=== PATIENT | male | born 1950 | race Caucasian/White ===

== ENCOUNTER → 2022-02-17 11:02 | Outpatient (BNVA) | payer MEDICARE, SELFPAY | PROVIDERS: PCP Internal Medicine; Visit Provider Psychiatry & Neurology Neurology | DX: G47.33 Obstructive sleep apnea (adult) (pediatric) (principal); R51.9 Headache, unspecified; M54.2 Cervicalgia; G91.2 (Idiopathic) normal pressure hydrocephalus; R26.9 Unspecified abnormalities of gait and mobility; G25.81 Restless legs syndrome; G89.29 Other chronic pain | CPT/HCPCS: 99202 ==

== ENCOUNTER 2022-05-02 10:34 | Outpatient (REF) | payer MEDICARE, SELFPAY ==
--- NOTE | ~2022-05-02 | XR_ITS ---
EXAMINATION: XR cervical spine 2V CLINICAL INFORMATION: Pain COMPARISON: None TECHNIQUE: 4 views of the cervical spine were obtained. FINDINGS: The cervical spine is visualized to the level of C7-T1 on the lateral view. Loss of the usual cervical spine lordosis which may be due to positioning or muscle spasm. Vertebral body heights are maintained. Mild degenerative disc disease at multiple levels, manifested by mild loss of disc space height and facet arthropathy. Lateral masses of C1 are well aligned on C2. Visualized portion of the dens is intact. No prevertebral soft tissue swelling. Partially imaged ventriculoperitoneal shunt catheter tubing in the right neck. XR/XR cervical spine 2V IMPRESSION: 1. Mild spondylosis of the cervical spine, as above detailed. 2. Loss of usual cervical spine lordosis which may be due to positioning or muscle spasm.
== END 2022-05-02 10:35 | disposition home or self-care (01) ==
LOC: HO.XRAY 10:34
PROVIDERS: PCP Family Medicine; Visit Provider Psychiatry & Neurology Neurology
DX: M54.2 Cervicalgia (principal)
CPT/HCPCS: 72040

== ENCOUNTER → 2022-05-04 08:16 | Outpatient (BNVA) | payer MEDICARE, SELFPAY | PROVIDERS: PCP Family Medicine; Visit Provider Nurse Practitioner Family | DX: G91.2 (Idiopathic) normal pressure hydrocephalus (principal); R51.9 Headache, unspecified; R26.9 Unspecified abnormalities of gait and mobility; M54.2 Cervicalgia; G25.81 Restless legs syndrome; G47.33 Obstructive sleep apnea (adult) (pediatric); G89.29 Other chronic pain | CPT/HCPCS: 99212 ==

== ENCOUNTER → 2022-05-31 11:05 | Outpatient (REF) | payer MEDICARE, SELFPAY | LOC: HO.SL 11:05 | PROVIDERS: Visit Provider Nurse Practitioner Family | DX: G47.33 Obstructive sleep apnea (adult) (pediatric) (principal); G25.81 Restless legs syndrome; G89.29 Other chronic pain; G91.2 (Idiopathic) normal pressure hydrocephalus; R51.9 Headache, unspecified | CPT/HCPCS: 95806 ==

== ENCOUNTER 2022-06-13 13:00 | Outpatient (RCR) | payer MEDICARE, SELFPAY ==
--- NOTE | 2022-05-29 15:11 | MHC.PT.EP ---
[facility] [place] Office [place] Office [place] [facility] [address] [phone] F: [phone] F: [phone] F: [phone] F: [phone] Physical Therapy Plan of Care Date of Evaluation: Date of Surgery: 3-4 years ago Diagnosis: unspecified abnormalities of gait and mobility Assessment: Patient is a 71 year old R handed male who presents with s/s consistent with unspecified abnormalities of gait and mobility. He does not work and is currently very sedentary. Patient past medical history includes DM and hydrocephalus. Current impairments include pain, balance, posture, ROM, strength, activity tolerance and functional mobility. Functional limitations include decreased ability to walk, stand, transfer, get out of bed and perform most standing activities. Patient is motivated with good rehab potential. Skilled PT will address impairments and functional limitations in order to achieve goals. Frequency and Duration: The patient will be seen 2x/week for 5 weeks Short Term Goals: I with HEP - 2 weeks Able to sit <> stand with 1 HH assist - 3 weeks ABle to walk > 5 minutes without rest - 3 weeks Long-Term Goals: LE strength 4-/5 grossly - 6 weeks SLB > 5 seconds b/l - 7 weeks LEFS 24/80 - 8 weeks Treatment Plan: Modalities to reduce pain, spasms and effusion. Manual therapy to restore motion and function. Therapeutic exercise to improve strength and flexibility. Neuromuscular re-education for posture and balance. Therapeutic activities to return to functional activities of daily living. Electronically signed by: Jackson Carver, PT Please sign and return to therapist. Thank you for your referral.
--- NOTE | 2022-08-08 07:33 | MHC.PT.DC ---
[facility] [place] Office [place] Office [place] Office [address] [place] [address] [phone] F: [phone] F: [phone] F: [phone] F: [phone] Physical Therapy Discharge Report Diagnosis: unspecified abnormalities of gait and mobility Date of Surgery: 3-4 years ago Date of Evaluation: 05/29/22 Date of Discharge: 06/14/22 Treatments to Date: 4 Cancellations to Date: No Shows to Date: Discharge Status: Independent with HEP Patient Elected to Stop Discharge Summary: 06/13; Pt needes freq rest periods. Pt fatigued after hip exs. Pt challanged with balance exs. 06/09/22: progressed with activity level today with educated on importance of strength and balance ex. Pt exp an increase in c/s sxs with c/o tingling and requested to not do any more ex. Pt challenged with tandem with staggered stance. Patient is a 71 year old R handed male who presents with s/s consistent with unspecified abnormalities of gait and mobility. He does not work and is currently very sedentary. Patient past medical history includes DM and hydrocephalus. Current impairments include pain, balance, posture, ROM, strength, activity tolerance and functional mobility. Functional limitations include decreased ability to walk, stand, transfer, get out of bed and perform most standing activities. Patient is motivated with good rehab potential. Skilled PT will address impairments and functional limitations in order to achieve goals. Electronically signed by: Jackson Carver PT Please sign and return to therapist. Thank you for your referral.
== END 2022-08-08 07:34 | disposition home or self-care (01) ==
LOC: HO.PTCHIC 13:00
PROVIDERS: Visit Provider Psychiatry & Neurology Neurology
DX: R26.9 Unspecified abnormalities of gait and mobility (principal)
CPT/HCPCS: 97110; 97112; 97163

== ENCOUNTER → 2022-07-07 09:59 | Outpatient (BNVA) | payer MEDICARE, SELFPAY | PROVIDERS: PCP Family Medicine; Visit Provider Nurse Practitioner Family | DX: G91.2 (Idiopathic) normal pressure hydrocephalus (principal); R51.9 Headache, unspecified; G47.33 Obstructive sleep apnea (adult) (pediatric); G25.81 Restless legs syndrome; G89.29 Other chronic pain; M54.2 Cervicalgia; R26.9 Unspecified abnormalities of gait and mobility | CPT/HCPCS: 99212 ==

== ENCOUNTER → 2022-10-18 19:30 | Outpatient (REF) | payer MEDICARE, SELFPAY | LOC: HO.SL 19:30 | PROVIDERS: PCP Family Medicine; Visit Provider Nurse Practitioner Family | DX: G47.33 Obstructive sleep apnea (adult) (pediatric) (principal); G25.81 Restless legs syndrome | CPT/HCPCS: 95810 ==

== ENCOUNTER → 2022-10-18 21:01 | Outpatient (BNV) | payer MEDICARE, SELFPAY | PROVIDERS: PCP Family Medicine; Visit Provider Psychiatry & Neurology Neurology | DX: G47.33 Obstructive sleep apnea (adult) (pediatric) (principal) | CPT/HCPCS: 95810 ==

== ENCOUNTER 2022-11-09 14:27 | Outpatient (AMB) | payer MEDICARE, SELFPAY ==
[2022-11-09 14:35] VITALS: BP 110/70; PULSE 72; O2SAT 96; BMI 40.8
--- NOTE | 2022-11-09 14:35 | MHC.OFFVIS ---
Intake Vital Signs 11/09/22 14:35 Height 5 ft 5 in Weight 245 lb 4 oz BMI 40.8 BP 110/70 Blood Pressure Location Rt brachial Position Sitting Pulse 72 Pulse Source Pulse Oximeter Pulse Oximetry (%) 96 Oxygen Delivery Method Room Air Intake Visit Reasons: follow up-LVM Intake Note: Pt presents in office as a f/u. [employer] Required: No Allergies No Known Allergies Allergy (Verified 11/09/22 14:37) HPI HPI Comments History of Present Illness Details 72 y/o male patient presents for follow up of sleep study. The PSG sleep study result was significant for mild degree of sleep apnea with increased severity in REM sleep. The AHI was 12/hr and REM AHI was 42/hr and oxygen vidhya was 75%. Sleep titration study ordered and scheduled today. Pt states that he takes ropinirole 0.5 mg BID, at 4 pm and 10 pm. His restless legs symptoms controls better in the evening but his legs jumping too much at night. He is on gabapentin 1200 mg BID. Pt reports headache, using Tylenol sometimes. He is on magnesium 400 mg qHS. Has hx of NPH and s/p shunt. [facility] Medical History Obesity Arthritis Asthma NPH (normal pressure hydrocephalus) GERD (gastroesophageal reflux disease) Kidney disease Hyperlipidemia HTN (hypertension) Diabetic neuropathy Diabetes Gait disorder Surgical History History of brain shunt H/O knee surgery History of cataract surgery Family History Father Alzheimer disease Mother Diabetes Hypertension Brother Prostate cancer Brother Cancer Sister Heart disease Sister Lung disease Son Diabetes Depression Daughter Diabetes Depression Social History (Updated 11/09/22 @ 14:41 by Nataliya Malloy CMA) Alcohol intake: current Alcohol intake frequency: holidays/special occasions only Patient Tobacco Use Status: Former Tobacco user Review of Systems Const All systems reviewed & are unremarkable except as noted in HPI and below Physical Exam Vital Signs: Last Vital Signs Pulse 72 11/09/22 14:35 BP 110/70 11/09/22 14:35 Pulse Ox 96 11/09/22 14:35 Oxygen Delivery Method Room Air 11/09/22 14:35 BMI result Body Mass Index 40.8 Assessment & Plan Assessment & Plan (1) Obstructive sleep apnea: Comment: Mild degree of sleep apnea with increased severity in REM. AHI was 12/hr and REM AHI was 42/hr and oxygen vidhya was 75% Code(s): G47.33 - Obstructive sleep apnea (adult) (pediatric) (2) Restless legs syndrome (RLS): Code(s): G25.81 - Restless legs syndrome (3) Chronic headaches: Comment: frontal headaches likely related to neck tightness , untreated sleep apnea. Code(s): R51.9 - Headache, unspecified; G89.29 - Other chronic pain Plan Advised patient to take ropinirole 0.5 mg at 8 pm and 10 pm to help him sleep better. Encouraged patient to increase physical activity, 30 min walk daily. Advised patient to undergo in-lab sleep titration study and will f/u of the result for appropriate treatment option. Continue to take magnesium 400 mg qHS and start vitamin B2 400 mg daily for headache prevention. Will consider repeat brain MRI if his headache frequency and intensity increased. Medications: New riboflavin (vitamin B2) 400 mg PO DAILY 30 days 30 tabs 6RF Refilled ropinirole 0.5 mg PO BID 30 days 60 tabs 6RF Coding Level of Care Code Est Pt Level 4 (48816) Diagnoses Obstructive sleep apnea G47.33 Restless legs syndrome (RLS) G25.81 Chronic headaches R51.9; G89.29
== END 2022-11-09 15:01 | disposition home or self-care (01) ==
PROVIDERS: PCP Family Medicine; Visit Provider Nurse Practitioner Family
DX: G47.33 Obstructive sleep apnea (adult) (pediatric) (principal); G25.81 Restless legs syndrome; R51.9 Headache, unspecified; G89.29 Other chronic pain
CPT/HCPCS: 99214

== ENCOUNTER → 2022-11-09 14:27 | Outpatient (BNVA) | payer MEDICARE, SELFPAY | PROVIDERS: PCP Family Medicine; Visit Provider Nurse Practitioner Family | DX: G47.33 Obstructive sleep apnea (adult) (pediatric) (principal); G25.81 Restless legs syndrome; R51.9 Headache, unspecified; G89.29 Other chronic pain | CPT/HCPCS: 99212 ==

== ENCOUNTER → 2022-11-15 19:30 | Outpatient (REF) | payer MEDICARE, SELFPAY | LOC: HO.SL 19:30 | PROVIDERS: PCP Family Medicine; Visit Provider Nurse Practitioner Family | DX: G47.33 Obstructive sleep apnea (adult) (pediatric) (principal) | CPT/HCPCS: 95811 ==

== ENCOUNTER → 2022-11-16 00:54 | Outpatient (BNV) | payer MEDICARE, SELFPAY | PROVIDERS: PCP Family Medicine; Visit Provider Psychiatry & Neurology Neurology | DX: G47.33 Obstructive sleep apnea (adult) (pediatric) (principal) | CPT/HCPCS: 95811 ==

== ENCOUNTER 2023-03-15 14:40 | Outpatient (AMB) | payer MEDICARE, SELFPAY ==
--- NOTE | 2023-03-15 14:46 | MHC.OFFVIS ---
Intake Vital Signs 03/15/23 14:52 Height 5 ft 5 in Weight 253 lb 8 oz BMI 42.2 BP 124/80 Blood Pressure Location Rt brachial Position Sitting Pulse 72 Pulse Source Pulse Oximeter Pulse Oximetry (%) 92 Oxygen Delivery Method Room Air Intake Visit Reasons: 4m follow up-Conf Intake Note: Patient presents for four month F/U. Having trouble keeping mask on face and he gets a lot of anxiety. lots of air coming out at once and feeling like he is going to have a heart attack. Pt. wondering if theres something different he could try. Allergies No Known Allergies Allergy (Verified 03/15/23 14:51) HPI HPI Comments History of Present Illness Details 72 y/o male patient presents for follow up of sleep study. The PSG sleep study result was significant for mild degree of sleep apnea with increased severity in REM sleep. The AHI was 12/hr and REM AHI was 42/hr and oxygen vidhya was 75%. Pt underwent titration study. He trialed on CPAP [id number]. There were some residual events at lower pressure. The breathing and oxygenation stabilized on CPAP at [id number]. Pt tried CPAP but very uncomfortable and can't get used to it yet. And also his restless legs very bothersome and couldn't use CPAP well. Pt states that he takes ropinirole 0.5 mg BID, at 4 pm and 10 pm. His restless legs symptoms controls better in the evening but his legs jumping too much at night. He is on gabapentin 1200 mg BID at 4 pm and 10 pm, too. [facility] Medical History Obesity Arthritis Asthma NPH (normal pressure hydrocephalus) GERD (gastroesophageal reflux disease) Kidney disease Hyperlipidemia HTN (hypertension) Diabetic neuropathy Diabetes Gait disorder Surgical History History of brain shunt H/O knee surgery History of cataract surgery Family History Father Alzheimer disease Mother Diabetes Hypertension Brother Prostate cancer Brother Cancer Sister Heart disease Sister Lung disease Son Diabetes Depression Daughter Diabetes Depression Social History (Updated 11/09/22 @ 14:41 by Nataliya Malloy CMA) Alcohol intake: current Alcohol intake frequency: holidays/special occasions only Patient Tobacco Use Status: Former Tobacco user Review of Systems Const All systems reviewed & are unremarkable except as noted in HPI and below Physical Exam Const General: cooperative Nutritional Appearance: obese Orientation/consciousness: patient oriented x3 Limitations: physical limitations HEENT Head: Yes normocephalic Neuro Other: Neck - pain and tenderness General: patient oriented x3, tone normal and moves all extremities Cranial nerves: Yes Bilaterally intact EOM present, Yes Nystagmus not present, Yes Normal facial strength present and Yes Midline tongue present Cognition (Neuro): normal cognition Gait exam (Neuro): Antalgic gait present Motor exam (neuro): 5/5 motor strength present throughout and Normal motor muscle tone present throughout Deep tendon reflexes (DTR's): Right triceps reflex intensity grade: 1+, Left triceps reflex intensity grade: 1+, Rt Biceps (C5, C6): 1+, Left biceps reflex intensity grade: 1+, Right brachioradialis reflex intensity grade: 0, Left brachioradialis reflex intensity grade: 0, Right patellar reflex intensity grade: 0 and Left patellar reflex intensity grade: 0 Coordination: [id number] test normal Psych Mental Status: mental status grossly normal Assessment & Plan Assessment & Plan (1) Obstructive sleep apnea: Comment: Mild degree of sleep apnea with increased severity in REM. AHI was 12/hr and REM AHI was 42/hr and oxygen vidhya was 75% Code(s): G47.33 - Obstructive sleep apnea (adult) (pediatric) (2) Restless legs syndrome (RLS): Code(s): G25.81 - Restless legs syndrome Plan Advised patient to take ropinirole 0.5 mg at 4 pm and 1 mg at 10 pm to help him sleep better. Encouraged patient to increase physical activity, 30 min walk daily. Advised patient to try CPAP at [id number] when he rest or watches TV to get used to it. Stressed compliance, use CPAP nightly and more than 4 hrs. Wt reduction advised. Medications: Changed From ropinirole 0.5 mg PO BID 30 days 60 tabs 6RF To ropinirole 1 tab q 4 pm and 2 tabs at 10 pm orally; 90 days 60 tabs 6RF Coding Level of Care Code Est Pt Level 4 (71697) Diagnoses Obstructive sleep apnea G47.33 Restless legs syndrome (RLS) G25.81
[2023-03-15 14:52] VITALS: BP 124/80; PULSE 72; O2SAT 92; BMI 42.2
== END 2023-03-15 15:46 | disposition home or self-care (01) ==
PROVIDERS: PCP Family Medicine; Visit Provider Nurse Practitioner Family
DX: G47.33 Obstructive sleep apnea (adult) (pediatric) (principal); G25.81 Restless legs syndrome
CPT/HCPCS: 99214

== ENCOUNTER → 2023-03-15 14:40 | Outpatient (BNVA) | payer MEDICARE, SELFPAY | PROVIDERS: PCP Family Medicine; Visit Provider Nurse Practitioner Family | DX: G47.33 Obstructive sleep apnea (adult) (pediatric) (principal); G25.81 Restless legs syndrome | CPT/HCPCS: 99212 ==

== ENCOUNTER 2024-10-08 13:08 | Outpatient (REF) | payer OTHER, SELFPAY ==
--- NOTE | 2024-10-08 | EMG_ITS ---
Chief complaint: History of diabetic neuropathy. Having more pain on both hands. Noted thinning of right FDI. Reason for referral: Evaluate for Carpal Tunnel Syndrome versus ulnar neuropathy Referred by: Wai PATEL Procedure done: Bilateral upper extremity NCS/EMG Precautions and/or limitations: None The limb temperature was monitored continuously and remained between 32-36 degrees C during the performance of the NCS. Ulnar motor NCS was performed with moderate elbow flexion between 70-90 degrees, with across-elbow distance of 10 cm. Nerve Conduction Studies Anti Sensory Summary Table ?Stim Site NR Onset (ms) Norm Onset (ms) Peak (ms) Norm Peak (ms) O-P Amp (?V) Norm O-P Amp Site1 Site2 Delta-0 (ms) Dist (cm) Keenan (m/s) Norm Keenan (m/s) Left Median Anti Sensory (2nd Digit) Wrist NR <3.6 >10 Wrist 2nd Digit 14.0 Right Median Anti Sensory (2nd Digit) Wrist ? 5.3 5.9 <3.6 4.2 >10 Wrist 2nd Digit 5.3 14.0 26 Left Radial Anti Sensory (Thumb) Forearm ? 1.7 2.2 <3.1 14.3 Forearm Thumb 1.7 0.0 Right Radial Anti Sensory (Thumb) Forearm NR <3.1 Forearm Thumb 0.0 Left Ulnar Anti Sensory (5th Digit) Wrist NR <3.7 >15.0 Wrist 5th Digit 14.0 Right Ulnar Anti Sensory (5th Digit) Wrist ? 4.2 5.3 <3.7 14.8 >15.0 Wrist 5th Digit 4.2 14.0 33 Motor Summary Table ?Stim Site NR Onset (ms) Norm Onset (ms) O-P Amp (mV) Norm O-P Amp iAmp (mV) Amp (1st) (%) Site1 Site2 Delta-0 (ms) Dist (cm) Keenan (m/s) Norm Keenan (m/s) Left Median Motor (Abd Poll Brev) Wrist ? 5.9 <3.9 4.9 >4.5 6.2 100.0 Elbow Wrist 5.1 23.5 46 >45 Elbow ? 11.0 4.2 5.2 85.7 Right Median Motor (Abd Poll Brev) Wrist ? 5.2 <3.9 6.4 >4.5 8.2 100.0 Elbow Wrist 4.4 20.0 45 >45 Elbow ? 9.6 6.5 8.6 101.6 Left Ulnar Motor (Abd Dig Minimi) Wrist ? 3.2 <3.0 6.3 >5 7.8 100.0 B Elbow Wrist 4.1 20.0 49 >45 B Elbow ? 7.3 5.4 7.0 85.7 A Elbow B Elbow 1.8 10.0 56 >45 A Elbow ? 9.1 5.3 6.9 84.1 Right Ulnar Motor (Abd Dig Minimi) Wrist ? 3.2 <3.0 6.0 >5 7.8 100.0 B Elbow Wrist 4.0 20.0 50 >45 B Elbow ? 7.2 5.4 6.9 90.0 A Elbow B Elbow 1.7 10.0 59 >45 A Elbow ? 8.9 3.4 4.3 56.7 Left Ulnar (FDI) Motor (FDI) Wrist ? 4.6 <3.0 3.9 >5 5.5 100.0 B Elbow Wrist 4.1 20.5 50 >45 B Elbow ? 8.7 4.4 5.7 112.8 A Elbow B Elbow 1.6 10.0 62 >45 A Elbow ? 10.3 3.7 5.2 94.9 Right Ulnar (FDI) Motor (FDI) Wrist ? 4.5 <3.0 9.1 >5 10.7 100.0 B Elbow Wrist 4.3 20.0 47 >45 B Elbow ? 8.8 4.5 5.8 49.5 A Elbow B Elbow 2.3 10.0 43 >45 A Elbow ? 11.1 0.3 0.5 3.3 EMG ?Side Muscle Nerve Root Ins Act Fibs Psw Amp Dur Poly Recrt Int Pat Comment Right 1stDorInt Ulnar C8-T1 Incr 1+ 1+ Nml Nml 0 Nml Complete Right FlexCarpiUln Ulnar C8,T1 Nml Nml Nml Nml Nml 0 Nml Complete Right Biceps Musculocut C5-6 Nml Nml Nml Nml Nml 0 Nml Complete Right Triceps Radial C6-7-8 Nml Nml Nml Nml Nml 0 Nml Complete Right Deltoid Axillary C5-6 Nml Nml Nml Nml Nml 0 Nml Complete Left 1stDorInt Ulnar C8-T1 Nml Nml Nml Nml Nml 0 Nml Complete Left FlexCarpiUln Ulnar C8,T1 Nml Nml Nml Nml Nml 0 Nml Complete Left Biceps Musculocut C5-6 Nml Nml Nml Nml Nml 0 Nml Complete Left Triceps Radial C6-7-8 Nml Nml Nml Nml Nml 0 Nml Complete Left Deltoid Axillary C5-6 Nml Nml Nml Nml Nml 0 Nml Complete Paraspinal EMG ?Side Muscle Nerve Root Ins Act Fibs Psw Comment Right Cervical Upper Rami Nml Nml Nml Right Cervical Mid Rami Nml Nml Nml Right Cervical Lower Rami Nml Nml Nml Left Cervical Upper Rami Nml Nml Nml Left Cervical Mid Rami Nml Nml Nml Left Cervical Lower Rami Nml Nml Nml FINDINGS: Bilateral median motor nerves showed prolonged distal latency, normal amplitude and normal conduction velocity. Right ulnar motor nerve, recording ADM muscle, showed prolonged distal latency, smaller amplitudes proximally but normal conduction velocity. When recording at FDI muscle, showed prolonged distal latencies, drop in amplitude above elbow, and slow conduction velocity across the elbow. Left ulnar motor nerve, recording ADM, showed prolonged distal latency, normal amplitude and normal conduction velocity. When recording at FDI, showed prolonged distal latencies and small amplitude but still normal conduction velocity. Right median and ulnar sensory nerves showed peak latency.prolonge and small amplitude. Right radial sensory nerves showed absent response. Left median and ulnar sensory nerves showed absent response. All other nerves tested were within normal. Concentric needle EMG was performed in selected muscles of the bilateral upper extremities and cervical paraspinals. Study revealed signs of electric abnormalities as shown in the table above. Right FDI showed increased insertional activity, PSWs and fibrillations. IMPRESSION: 1. This is an abnormal study. 2. There is electrodiagnostic evidence for bilateral moderate-severe median neuropathy at the wrist, consistent with Carpal Tunnel Syndrome. 3. There is electrodiagnostic evidence for bilateral ulnar neuropathy at the elbow, more localizable on the right side. 4. There is no electrodiagnostic evidence for brachial plexopathy or cervical radiculopathy. CLINICAL COMMENT: Evidence of Carpal Tunnel Syndrome and ulnar neuropathy in a patient with known history of peripheral neuropathy. Thank you for your kind referral. Lori Garcia MD, GIANNA Board Certified, [place] [employer] and [employer] (ABPMR) Board Certified, [place] Board [employer] Electrodiagnostic [employer] (ABEM) CODIN [phone] [id number]
--- OUTSIDE RECORDS SUMMARY | 2024-10-08 13:42 | XMS_ITS | Clinical Summary ---
Author Organization [facility]. Address [address] [place] [address] [address] [place] [address] Phone Care Team Providers Care Oracle Analyst Name Role Phone Jorje Carolina Primary Care Provider [phone] Allergies Active Allergy Reactions Criticality Noted Date Comments Sitagliptin Other (see comments),Rash Low 3 Medications acetaminophen (TYLENOL 8 HOUR) 650 MG 8 hr tablet Take 650 mg by mouth 3 Active albuterol HFA (PROVENTIL HFA;VENTOLIN HFA) 108 (90 Base) MCG/ACT inhaler Inhale 2 Puffs into the lungs every 4 hours as needed for Cough, Wheezing or Shortness of Breath. 3 Active albuterol (2.5 MG/3ML) 0.083% nebulizer solution Take 1 Vial by nebulization every 4 hours as needed for Wheezing, Shortness of Breath or Cough. 3 Active amLODIPine (NORVASC) 5 MG tablet Take 5 mg by mouth in the morning. 1 Active atorvastatin (LIPITOR) 20 MG tablet Take 20 mg by mouth in the morning. 1 Active cetirizine (ZyrTEC) 10 MG tablet Take 10 mg by mouth 1 (one) time each day Active clobetasol (TEMOVATE) 0.05 % ointment APPLY EXTERNALLY A SMALL AMOUNT TO THE AFFECTED AREA EVERY 12 HOURS FOR NO MORE THAN 14 DAYS AT A TIME Active cyanocobalamin 500 MCG tablet Take 500 mcg by mouth in the morning. 5 Active cyclobenzaprine (FLEXERIL) 10 MG tablet Take 10 mg by mouth 2 times daily as needed 4 Active famotidine (PEPCID) 20 MG tablet TAKE 1 TABLET BY MOUTH AT BEDTIME NEEDED FOR HEARTBURN Active ferrous sulfate 325 (65 Fe) MG tablet Take 325 mg by mouth every other day 5 Active gabapentin (NEURONTIN) 800 MG tablet Take 800 mg by mouth in the morning and 800 mg at noon and 800 mg in the evening. 5 Active hydrOXYzine (ATARAX) 25 MG tablet Take 1 tablet by mouth 2 times daily as needed 1 Active Insulin Aspart 100 UNIT/ML solution Inject as directed. 14 units Active Lantus SoloStar 100 UNIT/ML injection ADMINISTER 60 UNITS UNDER THE SKIN DAILY Active lisinopril 40 MG tablet Take 40 mg by mouth in the morning. 1 Active meclizine (ANTIVERT) 12.5 MG tablet Take 12.5 mg by mouth 0 Active melatonin 3 MG tablet Take 3 mg by mouth 3 Active metoprolol succinate XL (TOPROL XL) 25 MG 24 hr tablet Take 25 mg by mouth in the morning. 5 Active omeprazole (PriLOSEC) [address] capsule take 1 capsule by mouth every morning before breakfast Active Riboflavin 400 MG tablet Take 1 tablet by mouth 1 (one) time each day Active rOPINIRole (REQUIP) 0.5 MG tablet Take 0.5 mg by mouth in the morning and 0.5 mg at noon and 0.5 mg in the evening. 1 Active sildenafil (VIAGRA) 100 MG tablet TAKE 1 TABLET BY MOUTH DIRECTED 30-60 MINUTES PRIOR TO SEX ON EMPTY STOMACH Active tacrolimus (PROTOPIC) 0.1 % ointment APPLY TO THE AFFECTED AREA ON FACE AND NECK TWICE DAILY NEEDED Active terbinafine (LamISIL) 1 % cream Active Mounjaro 7.5 MG/0.5ML solution auto-injector ADMINISTER 7.5 MG UNDER THE SKIN EVERY 7 DAYS 5 Active tamsulosin (FLOMAX) 0.4 MG 24 hr capsule Take 0.4 mg by mouth at bed time Active trospium (SANCTURA) 20 MG tablet Take 1 tablet by mouth in the morning and 1 tablet in the evening. 3 Active Fluticasone-Oziel meterol (Wixela Inhub) 500-50 MCG/ACT aerosol powder Inhale Active Finerenone (Kerendia) 10 MG tablet Take 10 mg by mouth 1 (one) time each day 90 tablet 1 5 07/12/19 26 Active Active Problems Problem Noted Date Diagnosed Date Stage 3a chronic kidney disease 07/11/2024 Type 2 diabetes mellitus wit h diabetic chronic kidney disease 05/30/2024 Renal osteodystrophy 05/30/2024 Stage 3b chronic kidney disease 05/08/2024 Iron deficiency anemia 09/03/2023 Urinary incontinence 08/09/2022 Type 2 diabetes mellitus 05/13/2020 Cobalamin deficiency 08/13/2019 Proteinuria 02/08/2017 Hypertensive disorder 12/01/2016 Overview (05/29/2024): Last Assessment & Plan: Patient's blood pressure is well-controlled today with reading 118/72. We will continue his current antihypertensive medication regimen as prescribed. Vitamin D deficiency 12/01/2016 Encounters Date Type Department Care Team Description 07/11/2024 9:00 AM EDT Office Visit [facility] [address] [address] Shade Grey MD Stage 3a chronic kidney disease (HCC) (Primary Dx); Type 2 diabetes mellitus with diabetic chronic kidney disease (HCC); Hypertensive disorder from Last 3 Months Immunizations Immunization Administration Dates Next Due Influenza, MDCK, PF, Quadrivalent 03/05/2018 Influenza, MDCK, Quadrivalen t, with preservative 11/24/2016 Influenza, Trivalent, Adjuvanted 024,02/16/2023,02/04/2021,12/08,12/02/2018 Moderna SARS-COV-2 08/24/2021, 1,06/18/2020,05/21 Pneumococcal Conjugate 13-Valent 12/02/2018 Pneumococcal Polysaccharide 06/08/2022 Td 06/08/2022 Family History Medical History Relation Comments Diabetes Mother Relation Status Comments Father Mother Social History Tobacco Use Types Packs/Day Years Used Date Smoking Tobacco: Never Tobacco Cessation:Counseling Given: Not Answered Alcohol Use Standard Drinks/Week Comments Never 0 (1 standard drink = 0.6 oz pur e alcohol) Sex and Gender Information Value Date Recorded Sex Assigned at Not on file Legal Sex Male 11:36 AM EDT Gender Identity Not on file Sexual Orientation Not on file Last Filed Vital Signs Vital Sign Reading Time Taken Comments Blood Pressure 138/65 07/11/2024 9:40 AM EDT Pulse 69 07/11/2024 9:40 AM EDT Temperature - - Respiratory Rate - - Oxygen Saturation 95% 07/11/2024 9:40 AM EDT Inhaled Oxygen Concentration - - Weight 118 kg (260 lb) 07/11/2024 9:40 AM EDT Height - - Body Mass Index - - Plan of Treatment Upcoming Encounters Date Type Department Care Team (Late st Contact Info) Description 01/07/2025 10:30 AM EST Office Visit [facility] [address] [address] Miryam Harrison ARNP [address] [phone] Health Maintenance Due Date Last Done Comments Colorectal Cancer Screening: Annual FOBT 08/14/2000 Colorectal Cancer Screening: Colonoscopy 08/14/2000 Colorectal Cancer Screening: Sigmoidoscopy 08/14/2000 Hepatitis B Vaccine (1 of 3 - Risk 3-dose series) 2011 Diabetes: Ophthalmology Exam 05/20/2024 Diabetes: Pedal Pulse Checked 05/20/2024 Diabetes: Sensory Foot Exam 05/20/2024 Diabetes: Visual Foot Exam 05/20/2024 Diabetes: Hemoglobin A1C 09/04/2024 06/05/2024, 02/26 Influenza Vaccine (#1) 2024 4, 02/16/2023, 02/04/2021, Additional history exists Pneumococcal Vaccine: 50+ Years Completed 3, 12/02/[address] [place] [id number] [facility] ([id number]) JORGE ORTEGA [id number] Care Teams Oracle Analyst Relationship Specialty Start Date End Date Jorje Carolina [address] [place] [address] [id number] PCP - General 05/20/24
--- OUTSIDE RECORDS SUMMARY | 2024-10-08 13:42 | XMS_ITS | Clinical Summary ---
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 Name Role Phone Jorje Carolina MD Primary Care Pr ovider Allergies Active Allergy Reactions Criticality Noted Date Comments Sitagliptin Rash 12/29/2022 Medications blood sugar diagnostic (FreeStyle Lite Strips) test strip USE DIRECTED 2 TO 3 TIMES DAILY TO CHECK BLOOD SUGAR 2022 Active trospium (SANCTURA) 20 mg tablet TAKE 1 TABLET BY MOUTH TWICE DAILY 2022 Active tacrolimus (PROTOPIC) 0.1 % ointment 2022 Active sildenafiL (VIAGRA) 100 mg tablet TAKE 1 TABLET BY MOUTH DIRECTED 30-60 MINUTES PRIOR TO SEX ON EMPTY STOMACH 2022 Active tamsulosin (FLOMAX) 0.4 mg 24 hr capsule Take 0.4 mg by mouth daily. 2020 Active dupilumab (Dupixent Syringe) 300 mg/2 mL syringe Inject into the skin. Once weekly Active dextrose 40 % gel Take 15 g by mouth if needed for low blood sugar. 2022 Active acetaminophen (TYLENOL 8 HOUR) 650 mg 8 hr tablet Take 1 tablet (650 mg total) by mouth every 8 (eight) hours if needed for mild pain, moderate pain or headaches. 2022 Active ketorolac (ACULAR) 0.5 % ophthalmic solution 1 drop. Active meclizine (ANTIVERT) 12.5 mg tablet Take 1 tablet (12.5 mg total) by mouth. 2019 Active fluticasone propion-salmeteroL (Wixela Inhub) 500-50 mcg/dose diskus inhaler INHALE 1 PUFF INTO THE LUNGS TWICE DAILY 2022 Active melatonin 3 mg tablet Take 1 tablet (3 mg total) by mouth at bedtime. 2022 Active insulin aspart (NovoLOG Flexpen U-100 Insulin) 100 unit/mL (3 mL) injection penIndications:Type 2 diabetes mellitus with diabetic neuropathy, with long-term current use of insulin (CMS/HCC V24, CMS/HCC V28) INJECT UNDER THE SKIN THREE TIMES DAILY WITH MEALS PER SLIDING SCALE;<100; 10U, 101-150; 12U, 151-200; 14U, 201-250; 16U, 251-300;18U, 301-350; 60 mL 2 2023 Active insulin glargine (Lantus Solostar U-100 Insulin) 100 unit/mL (3 mL) injection penIndications:Type 2 diabetes mellitus with diabetic neuropathy, with long-term current use of insulin (CMS/HCC V24, CMS/HCC V28) Inject 60 Units under the skin 1 (one) time each day. ADMINISTER 60 UNITS UNDER THE SKIN DAILY 60 mL 2 2023 Active pen needle, diabetic (BD Ivette 2nd Gen Pen Needle) 32 gauge x 5/32 needle 1 each by extracorporeal route 4 (four) times a day. 400 each 1 2024 Active alcohol swabs (Easy Touch Alcohol Prep Pads) pads, medicated USE TO TEST BLOOD SUGAR FOUR TIMES DAILY DIRECTEDUSE TO TEST BLOOD SUGAR FOUR TIMES DAILY DIRECTED 300 each 3 2024 Active lisinopril (PRINIVIL,ZESTRIL) 40 mg tabletIndications:Prim silvia hypertension Take 1 tablet (40 mg total) by mouth 1 (one) time each day. 90 tablet 1 2024 Active cyanocobalamin (VITAMIN B-12) 500 mcg tabletIndications:B12 deficiency Take 1 tablet (500 mcg total) by mouth 1 (one) time each day. 90 tablet 1 2024 Active clobetasoL (TEMOVATE) 0.05 % ointmentIndications:Ec zema, unspecified type Apply small amounts to affected area every 12 hours. Do not use for more than 14 days at a time 60 g 2 2024 Active amLODIPine (NORVASC) 5 mg tabletIndications:Prim silvia hypertension Take 1 tablet (5 mg total) by mouth 1 (one) time each day. 90 tablet 1 2024 Active cholecalciferol (VITAMIN D-3) 50 mcg (2,000 unit) tabletIndications:Sagrario min D deficiency Take 1 tablet (2,000 Units total) by mouth 1 (one) time each day. 90 tablet 3 05/31 Active omeprazole (PriLOSEC) [address] capsule Take 1 capsule (20 mg total) by mouth 1 (one) time each day with breakfast. Do not crush or chew. 90 each 1 12/20 Active blood-glucose sensor (PhotoShelterStyle Kanika 3 Plus Sensor) deviceIndications:Type 2 diabetes mellitus with diabetic neuropathy, with long-term current use of insulin ([facility] V24, [facility] V28) Box = Kit = EA, change sensor every 2 weeks 6 kit 1 2024 Active rOPINIRole (REQUIP) 0.5 mg tabletIndications:rest less leg syndrome Take 2 tablets (1 mg total) by mouth 3 (three) times a day. 540 tablet 3 2024 Active tiZANidine (ZANAFLEX) 2 mg tabletIndications:Metal Fitter hakeem left-sided low back pain with left-sided sciatica,Cervical spondylosis Take 1 tablet (2 mg total) by mouth every 8 (eight) hours if needed for muscle spasms. 270 tablet 3 2024 Active propranolol LA (Inderal LA) 60 mg 24 hr capsule Take 1 capsule (60 mg total) by mouth 1 (one) time each day. Do not crush, chew, or split. 90 each 3 07/17 Active ferrous sulfate 325 mg (65 mg elemental iron) tablet Take 1 tablet (325 mg total) by mouth every other day. 90 tablet 1 2024 Active hydrOXYzine HCL (ATARAX) 25 mg tabletIndications:Kadeem rgic rhinitis, unspecified seasonality, unspecified trigger Take 1 tablet (25 mg total) by mouth at bedtime as needed for anxiety. 90 tablet 1 2024 Active cetirizine (ZyrTEC) 10 mg tabletIndications:Kadeem rgic rhinitis, unspecified seasonality, unspecified trigger Take 1 tablet (10 mg total) by mouth 1 (one) time each day. 90 tablet 1 2024 Active tirzepatide (Mounjaro) 10 mg/0.5 mL injectionIndications:T ype 2 diabetes mellitus with diabetic neuropathy, with long-term current use of insulin ([facility] V24, [facility] V28) Inject 0.5 mL (10 mg total) under the skin every 7 (seven) days. 2 mL 3 2024 Active hydrOXYzine pamoate (VISTARIL) 25 mg capsule Take 1 capsule (25 mg total) by mouth at bedtime as needed for itching. This represents a change from tablets to capsules per ins coverage 90 capsule 1 2024 Active Additional Information Patient not taking.Reported on 07/29/2024 albuterol 2.5 mg /3 mL (0.083 %) nebulizer solutionIndications:Mo derate persistent asthma without complication Take 3 mL (2.5 mg total) by nebulization every 4 (four) hours if needed for wheezing. 300 mL 3 07/29 Active albuterol HFA (PROAIR HFA ; PROVENTIL HFA ; VENTOLIN HFA) 90 mcg/actuation inhaler Inhale 2 puffs by mouth every 4 (four) hours if needed for wheezing. 6.7 g 3 07/29 Active onwekarx-xhjqsasyf-ike amethamethasone (POLYDEX) 3.5 mg/g-10,000 unit/g-0.1 % ointment APPLY 1/4 INCH TO THE EYELID FOUR TIMES DAILY FOR 2 TO 3 WEEKS THEN STOP 2024 Active Kerendia 10 mg tablet Take 1 tablet (10 mg total) by mouth 1 (one) time each day. Active famotidine (PEPCID) 20 mg tablet TAKE 1 TABLET BY MOUTH AT BEDTIME NEEDED FOR HEARTBURN 90 tablet 1 2024 Active atorvastatin (LIPITOR) 20 mg tabletIndications:Pure hypercholesterolemia Take 1 tablet (20 mg total) by mouth 1 (one) time each day. 90 tablet 1 2024 Active riboflavin (VITAMIN B2) 400 mg tablet Take 1 tablet (400 mg total) by mouth 1 (one) time each day. 90 tablet 2 2024 Active gabapentin (NEURONTIN) 800 mg tablet TAKE 1 TABLET(800 MG) BY MOUTH THREE TIMES DAILY 270 tablet 1 2024 Active gabapentin (Neurontin) 800 mg tablet Take 1 tablet (800 mg total) by mouth 3 (three) times a day. 270 tablet 1 09/22 Discontinued Active Problems Problem Noted Date Diagnosed Date Chronic kidney disease due t o type 2 diabetes mellitus ([facility] V24, [facility] V28) 05/30/2024 Renal osteodystrophy 05/30/2024 Stage 3b chronic kidney disease ([facility] V24, [facility] V28) 05/08/2024 Assessment & Plan (06/16/2024 2:18 PM EDT): The patient has evidence of CKD. Will refer the patient for an evaluation with the nephrology service. Orders: Ambulatory referral to Nephrology; Future History of DVT (deep vein thrombosis) 01/31/2024 Assessment & Plan (03/13/2024 5:23 PM EST): Resolved. Located in the left upper extremity. Completed Eliquis 5 mg twice daily 3-month course in November 2023. Repeat ultrasound of the left upper extremity showed resolution of blood clots on 12/25/2023 Assessment & Plan (01/31/2024 4:49 PM EST): Morbid obesity with BMI of 4 0.0-44.9, adult ([facility] [employer] V24, [facility] [employer] V28) 11/28/2023 Iron deficiency anemia 09/03/2023 Assessment & Plan (03/13/2024 5:23 PM EST): Continue ferrous sulfate Will update labs Orders: Ferritin; Future Iron and TIBC; Future Primary insomnia 09/03/2023 Assessment & Plan (06/05/2024 10:22 AM EDT): Continue melatonin nightly Assessment & Plan (01/31/2024 4:49 PM EST): Cervical spondylosis 01/04/2023 Overview (11/28/2023): Last Assessment & Plan: Mr. 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 On exam, cervical rotation is 60 degrees to the left and 45 to 60 degrees to the right, strength is 5/5, sensation to light touch intact, FTN is intact. He is slow to rise from the chair but gait is steady. It sounds like he should continue with physical therapy and they will apply to his insurance for more visits. He is welcome to see us if he has any concerns in the future. Eczema 10/26/2022 Assessment & Plan (06/05/2024 10:22 AM EDT): Continue Dupixent weekly and follow-up with [facility] dermatology. Continue clobetasol as needed Orders: clobetasoL (TEMOVATE) 0.05 % ointment; Apply small amounts to affected area every 12 hours. Do not use for more than 14 days at a time Assessment & Plan (03/13/2024 5:23 PM EST): Start clobetasol ointment Continue Dupixent weekly and follow up with dermatology Continue tacrolimus cream I advised that I do not think his current eczema rash state requires oral prednisone therapy. In light of his upcoming surgery , diabetes Dx and just branch general manager guidelines it is not a first-line treatment option. He is advised to try the clobetasol. Moisturize with Vaseline. F/u as needed Orders: clobetasoL (TEMOVATE) 0.05 % ointment; Apply small amounts to affected area every 12 hours. Do not use for more than 14 days at a time Assessment & Plan (01/31/2024 4:49 PM EST): Urinary incontinence 08/09/2022 Assessment & Plan (06/05/2024 10:22 AM EDT): Continue trospium. Continue urology follow-up Assessment & Plan (03/13/2024 5:23 PM EST): Continue trospium Moderate persistent asthma without complication 10/03/2021 Assessment & Plan (06/05/2024 10:22 AM EDT): Follow-up with pulmonology. Continue Wixela twice daily and albuterol as needed. He stopped using Singulair a few months ago because it did not like the way it made him feel Assessment & Plan (03/13/2024 5:23 PM EST): Stable. Continue Wixela twice daily and albuterol as needed. He stopped taking montelukast about 3 months ago because it made him feel funny Assessment & Plan (01/31/2024 4:49 PM EST): Lumbar spondylosis 05/05/2021 Overview (11/28/2023): Last Assessment & Plan: Patient had lumbar spine MRI ordered by John Paul Roberts PA-C for complaints of low back pain and left leg numbness. Patient states it has been going on for at least 6 months. When he went for the MRI today, he states the tube was too tight for him, he could not tolerate laying in it for the full MRI, there are sagittal images done, it looks like axials were not done yet before he had to stop. I did review patient's lumbar MRI sagittal views from [facility] with him on the computer. He has multilevel degenerative changes, multilevel disc bulging a little worse at L3-4, he has L4-5 DDD, no central stenosis, no severe foraminal stenosis at any levels. Official report still pending. I included patient's back pain in the PT order, in case they want to show him some stretching exercises, core strengthening to do at home. We talked about weight loss as well. Assessment & Plan (06/05/2024 10:22 AM EDT): Continue Flexeril as needed Also on gabapentin Orders: cyclobenzaprine (FLEXERIL) 10 mg tablet; Take 1 tablet (10 mg total) by mouth 2 (two) times a day if needed for muscle spasms. Type 2 diabetes mellitus wit h stage 3b chronic kidney disease, with long-term current use of insulin ([facility] V24, [facility] V28) 05/13/2020 Assessment & Plan (06/05/2024 10:22 AM EDT): Continue insulin Lantus 60 units daily, insulin novolog sliding scale premeals and Mounjaro 7.5 mg weekly. Continue endocrinology follow-up Will complete updated A1c ordered by his clothing sorter Orders: POC glucose manually resulted Basic metabolic panel; Future Assessment & Plan (03/13/2024 5:23 PM EST): Assessment & Plan (01/31/2024 4:49 PM EST): NPH (normal pressure hydroce phalus) ([facility] V24, [facility] V28) 10/20/2019 Overview (11/28/2023): Last Assessment & Plan: Patient comes in for shunt interrogation after lumbar MRI at [facility] this afternoon. He has been noticing some sharp pains in the forehead L >R. He saw Dr. Mccord for cervical spondylosis in February, she gave him physical therapy, he states cupping was helping him. He was going to [facility]. Unfortunately there was a in his family, he had to travel to [place] and did not continue PT. He wanted to restart PT but they told him he needs a new prescription. He has history of carpal tunnel, also was describing numbness in the hands today. 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 I gave patient updated PT order, hopefully when they restart cupping he will notice improvement again in his neck pain and upper extremity symptoms. He mentioned that he gets injections in the shoulders, has right greater than left shoulder pain. I included his neck, trapezius pain, shoulder pain and the PT order. Assessment & Plan (07/31/2024 3:23 PM EDT): Patient is following up in the office because for about 2 months he has noticed a mild constant headache all day long, no particular inciting event, no fall/trauma. He was seeing neurology (Dr. Gil, telehealth visit 07/17/2024) for tremors and restless leg syndrome and they asked him to follow-up with us for his headache. Neurology note also mentions that he complained of some balance issues, when asked about it patient states it feels like he is a little unsteady on his feet, if he has his head down and lifted up quickly he feels slightly dizzy as well. There was a few med changes made, including switching to Inderal for his tremor, decreasing gabapentin from 1200 mg 3 times daily to 800 mg 3 times daily. Patient denies taking any blood thinners, fish oil. Mr. Bill has mild constant daily headaches x 2 months, some balance issues. He is leaving for [place] in a couple weeks, we can check head CT prior to him traveling to rule out extra-axial fluid collections/subdural hematoma. If he is over draining, he can come back in and we can make adjustment to his shunt setting, currently at a 0.5 setting (lowest setting to allow for increased drainage). I will review his head CT with Dr. Mccord once completed. I asked them to call with any concerns or questions. Assessment & Plan (03/13/2024 5:23 PM EST): As above Mold exposure 10/01/2019 B12 deficiency 08/13/2019 Assessment & Plan (06/05/2024 10:22 AM EDT): Continue B12 daily Orders: cyanocobalamin (VITAMIN B-12) 500 mcg tablet; Take 1 tablet (500 mcg total) by mouth 1 (one) time each day. Assessment & Plan (03/13/2024 5:23 PM EST): Stable. Continue B12 supplement Chronic left-sided low back pain with left-sided sciatica 07/24/2019 Assessment & Plan (06/05/2024 10:22 AM EDT): Continue Flexeril as needed. Also on gabapentin Orders: cyclobenzaprine (FLEXERIL) 10 mg tablet; Take 1 tablet (10 mg total) by mouth 2 (two) times a day if needed for muscle spasms. Obstructive sleep apnea 07/25/2018 Overview (11/28/2023): [facility] Home Sleep Apnea Test: Date 07/23/2018; Wt 249#; BMI 42; KHUSHI 5, AI 2; HI 3; Unclassified apneas 4; Obstructive apneas 4; Central apneas 0; Mixed apneas 0; hypopneas 15; average oxygen saturation 94% (lowest 80% with saturations <88% @ 5% or more of study) [facility] Polysomnogram treatment study. Date 08/28/2018. Wt 251#; BMI 41; SE 68 % SM 69 %; spent 22 % of the study in REM. On CPAP @ 14; RDI 7.4 (AHI 3.9), Central apneas 0; Obstructive apneas 0; Mixed apneas 0; hypopneas 11; RERAs 10; and, average oxygen saturation was 96%. For the entire study, PLMs ~12. [facility] split-night polysomnogram done 08/02/2020. Weight 255 pounds; BMI forty-three; AHI 19; REM AHI 41; all hypopneas equals thirty-two; pretreatment oxygen saturation 94%; oxygen vidhya without treatment 81%; with CPAP trial at 9; AHI 4.4 and oxygen vidhya 93%; CPAP trial at 10; AHI 1.4 and oxygen vidhya 92%. - Obstructive Sleep Apnea - mild; mostly hypopneas; with borderline sleep related hypoventilation by 2018 home polysomnogram. - Obstructive sleep apnea-moderate overall; severe in REM with CPAP 9-10 corrective based on 2020 split night polysomnogram. Assessment & Plan (06/05/2024 10:22 AM EDT): Follow-up with pulmonology. Currently not on CPAP Assessment & Plan (03/13/2024 5:23 PM EST): He is to schedule an appointment with pulmonology to determine next steps regarding his sleep apnea treatment. He was previously unable to tolerate the sleep apnea machine. Orders: Ambulatory referral to Pulmonology; Future Allergic rhinitis 02/08/2017 Assessment & Plan (06/05/2024 10:22 AM EDT): Continue Zyrtec initiate and hydroxyzine as needed for itching Orders: cetirizine (ZyrTEC) 10 mg tablet; Take 1 tablet (10 mg total) by mouth 1 (one) time each day. BPH (benign prostatic hyperplasia) 02/08/2017 Assessment & Plan (06/05/2024 10:22 AM EDT): Continue tamsulosin and urology follow-up Assessment & Plan (03/13/2024 5:23 PM EST): Continue tamsulosin and follow-up with urology CTS (carpal tunnel syndrome) 02/08/2017 Diaphragmatic hernia 02/08/2017 Fatty liver 02/08/2017 Esophageal reflux 02/08/2017 Assessment & Plan (06/05/2024 10:22 AM EDT): Recently seen by GI. Continue omeprazole/famotidine Assessment & Plan (03/13/2024 5:23 PM EST): Continue famotidine/omeprazole. Intention tremor 02/08/2017 Assessment & Plan (01/31/2024 4:49 PM EST): Orders: Ambulatory referral to Neurology; Future Microalbuminuria 02/08/2017 Pure hypercholesterolemia 02/08/2017 Overview (11/28/2023): Last Assessment & Plan: Patient has a history of hyperlipidemia as well as a history of diabetes mellitus type 2. He continues on statin therapy as prescribed. His last LDL cholesterol May 2022 showed an LDL of 44. This is at goal. Will continue current therapies. Assessment & Plan (06/05/2024 10:22 AM EDT): Continue atorvastatin Orders: atorvastatin (LIPITOR) 20 mg tablet; Take 1 tablet (20 mg total) by mouth 1 (one) time each day. Assessment & Plan (03/13/2024 5:23 PM EST): Continue atorvastatin 20 mg daily Recurrent vertigo 02/08/2017 Restless leg syndrome 02/08/2017 Assessment & Plan (06/05/2024 10:22 AM EDT): Continue ropinirole 0.5 mg 3 times daily Assessment & Plan (03/13/2024 5:23 PM EST): Continue ropinirole. Has appointment to establish care with a new neurologist next month Assessment & Plan (01/31/2024 4:49 PM EST): Type 2 diabetes mellitus wit h neurologic complication ([facility] V24, [facility] V28) 02/08/2017 Assessment & Plan (06/05/2024 10:22 AM EDT): Continue gabapentin 800 mg 3 times daily. See HPI Assessment & Plan (03/13/2024 5:23 PM EST): Well controlled Continue insulin Lantus 60 units daily, insulin novolog sliding scale and Mounjaro 7.5 mg weekly(hold mounjaro dose , the week prior to surgery) Continue gabapentin 800mg TID Assessment & Plan (01/31/2024 4:49 PM EST): Orders: Hemoglobin A1c; Future Basic metabolic panel; Future Vitamin B12; Future Proteinuria 02/08/2017 HTN (hypertension) 12/01/2016 Overview (11/28/2023): Last Assessment & Plan: Patient's blood pressure is well-controlled today with reading 118/72. We will continue his current antihypertensive medication regimen as prescribed. Assessment & Plan (06/05/2024 10:22 AM EDT): Continue lisinopril, amlodipine and metoprolol. Blood pressure is well- controlled Orders: lisinopril (PRINIVIL,ZESTRIL) 40 mg tablet; Take 1 tablet (40 mg total) by mouth 1 (one) time each day. amLODIPine (NORVASC) 5 mg tablet; Take 1 tablet (5 mg total) by mouth 1 (one) time each day. metoprolol succinate (TOPROL-XL) 25 mg 24 hr tablet; Take 1 tablet (25 mg total) by mouth 1 (one) time each day. Assessment & Plan (06/16/2024 2:18 PM EDT): The patient has a history of arterial hypertension. The patient's blood pressure today was noted to be well controlled. We'll continue the current antihypertensive medication regimen. Orders: ECG 12 lead Assessment & Plan (03/13/2024 5:23 PM EST): Well controlled Continue lisinopril 40 mg daily, amlodipine 5 mg daily, metoprolol 25mg daily. Assessment & Plan (01/31/2024 4:49 PM EST): Spongiotic dermatitis 12/01/2016 Overview (11/28/2023): Dr Clark Vitamin D deficiency 12/01/2016 Assessment & Plan (06/05/2024 10:22 AM EDT): Start vitamin D 2000 units daily. Will update labs Orders: cholecalciferol (VITAMIN D-3) 50 mcg (2,000 unit) tablet; Take 1 tablet (2,000 Units total) by mouth 1 (one) time each day. Vitamin D 25 hydroxy; Future Resolved Problems Problem Noted Date Diagnosed Date Resolved Date DVT of upper extremity (deep vein thrombosis) ([facility] V24, [facility] V28) 08/10/2023 03/13/2024 Overview (11/28/2023): 08/19 Polyneuropathy associated wi th underlying disease ([facility] V24) 02/08/2017 03/13/2024 Encounters Date Type Department Care Team Description 08/14/2024 Telephone Neurosurgery [address] [place] [address] Arti Davis PA 08/13/2024 7:06 AM EDT - 08/13/2024 11:59 PM EDT Hospital Encounter [facility] Xray [address] [place] [phone] Gastroesophageal reflux disease without esophagitis; Fatty liver; Morbid obesity with BMI of 40.0-44.9, adult ([facility] V24, [facility] V28) Discharge Disposition: Home or Self Care 08/13/2024 7:06 AM EDT - 08/13/2024 11:59 PM EDT Hospital Encounter [facility] CT Scan [address] [place] [phone] NPH (normal pressure hydrocephalus) ([employer] [facility] [employer] V24, [employer] [employer] V28) Discharge Disposition: Home or Self Care 08/04/2024 Telephone Neurosurgery [facility] [address] [facility] [address] [place] [phone] Nadiya Sandra MA Appointment ([facility] Auth # [id number] for Head CT faxed over to [facility]. ) 07/31/2024 1:00 PM EDT Office Visit [facility] [address] [facility] [address] [place] [address] Arti Davis PA Hydrocephalus, communicating ([employer] [facility] [employer] V24, [employer] [facility] [employer] V28) (Primary Dx); NPH (normal pressure hydrocephalus) ([employer] [facility] [employer] V24, [employer] [employer] V28) 07/29/2024 8:30 AM EDT Office Visit Pulmonolgy [facility] [address] [facility] [address] [place] [phone] Susan Kaur MD Moderate persistent asthma without complication (Primary Dx); Obstructive sleep apnea 07/22/2024 11:30 AM EDT Telemedicine [address] [phone] Hans Tony MD Type 2 diabetes mellitus with diabetic neuropathy, with long-term current use of insulin ([facility] [employer] V24, [facility] V28) 07/17/2024 9:30 AM EDT Telemedicine [facility] [address] [facility] [address] [place] [address] Jennifer Gil MD Intention tremor; Chronic left-sided low back pain with left-sided sciatica; Cervical spondylosis 07/09/2024 Telephone Endocrinology - [place] [id number] [place] [phone] Hans Tony MD PRIOR AUTHORIZATION from Last 3 Months Immunizations Name Administration Dates Next Due Influenza Quadravalent, MDCK , 0.5ml, preservative free (Flucelvax) 6mo and older 03/05/2018 Influenza Quadravalent, MDCK , 0.5ml, with preservative (Flucelvax) 6mo and older 11/24/2016 Influenza trivalent, 0.5mL ( Fluad) 65yo and older 01/31/2024 Influenza trivalent, 0.5mL ( Fluzone High-dose) 65yo and older 02/16/2023,02/04/2021,12/09/2019,12/02 Moderna SARS-CoV-2 COVID-19, mRNA, LNP-S, preservative free 08/24/2021,02/02/2021,06/18/2020,05/21 Pneumococcal conjugate 13 va lent (Prevnar 13, PCV13) 2mo and older 12/02/2018 Pneumococcal polysaccharide 23 valent (Pneumovax 23) 2yo and older 06/08/2022 Tb Skin Test 09/07/2015 Td Tetanus diptheria (Tdvax) 7yo and older 06/08/2022 Surgical History Surgery Date Site/Laterality Comments KNEE SURGERY 2011 twice VENTRICULOPERITONEAL SHUNT 12/08/2019 Right Mccord. Right frontal SAFETY GLASS INSTALLER shunt placement with laparoscopic abdominal assist, NPH CATARACT EXTRACTION 2018 Bilateral CATARACT REMOVAL Medical History Medical History Date Comments Allergic rhinitis 02/08/2017 Asthma 02/08/2017 BPH (benign prostatic hyperplasia) 02/08/2017 CTS (carpal tunnel syndrome) 02/08/2017 Diaphragmatic hernia 02/08/2017 Fatty liver 02/08/2017 Esophageal reflux 02/08/2017 HTN (hypertension) 12/01/2016 Intention tremor 02/08/2017 parkinsonism Microalbuminuria 02/08/2017 Morbid obesity with BMI of 4 0.0-44.9, adult ([employer] [facility] V24, [facility] V28) 02/08/2017 Polyneuropathy associated wi th underlying disease ([employer] V24) 02/08/2017 Pure hypercholesterolemia 02/08/2017 Recurrent vertigo 02/08/2017 RLS (restless legs syndrome) 02/08/2017 Type 2 diabetes mellitus wit h neurologic complication ([facility] [facility] [employer] V24, [facility] V28) 02/08/2017 Type 2 diabetes, controlled, with renal manifestation ([employer] V24, [employer] [facility] V28) 12/01/2016 [facility] End[facility] [address] [facility] [facility]. Vitamin B 12 deficiency 02/08/2017 Vitamin D deficiency 12/01/2016 Spongiotic dermatitis 12/01/2016 Dr Clark B12 deficiency 08/13/2019 NPH (normal pressure hydroce phalus) ([employer] V24, [employer] V28) DVT of upper extremity (deep vein thrombosis) ([employer] V24, [employer] V28) 08/10/202308/19 Family History Medical History Relation Name Comments Diabetes Daughter x2 Hypertension Daughter x2 Other: heart disease, arthritis Father Other: heart disease, arthritis] Mother Other: Other Other 36 children total pulmonary issues, COPD, cardiac HTN, Diabetes, cancer Diabetes Son x3 Hypertension Son x3 Relation Name Status Comments Brother Alive Daughter x2 Alive Father Mother Other 36 children total Son x3 Alive Social History Tobacco Use Types Packs/Day Years Used Date Smoking Tobacco: Former Cigarettes Q uit: 02/26/1998 Smokeless Tobacco: Never Tobacco Cessation:Counseling Given: Not Answered Alcohol Use Standard Drinks/Week Comments Yes 1 (1 standard drink = 0.6 oz pur e alcohol) 1 every 6 months Housing Instability Answer Date Recorde d Are you worried that in the next 2 months you may not have stable housing? No 01/29/2024 Food Access & Nutrition Answer Date Rec orded Do you have access to a vari ety of food including fruits and vegetables? Yes 01/29/2024 Access to Healthcare Answer Date Record ed Within the last 3 months, ho w many times did you visit the emergency department for your medical care? 0 01/29/2024 Health Literacy Answer Date Recorded How often do you need to hav e someone help you when you read instructions, pamphlets, or other written material from your doctor or pharmacy? Often 01/29/2024 Caregiver: How often do you need to have someone help you when you read instructions, pamphlets, or other written material from your doctor or pharmacy? Not on file 01/29/2024 Financial Risk Answer Date Recorded How hard is it for you to pa y for the very basics like food, housing, medical care, and air conditioning / heating? Somewhat hard 01/29/2024 Transportation Answer Date Recorded Has the lack of transportati on kept you from meetings, work, or from getting things needed for daily living? No Has the lack of transportati on kept you from medical appointments or from getting medications? No 01/29/2024 Social Isolation Answer Date Recorded How often do you feel lonely or isolated from th ose around you? Never 01/29/2024 Food Risk Answer Date Recorded Within the past 12 months we worried whether our food would run out before we got money to buy more. Never true 024 Within the past 12 months th e food we bought just didn't last and we didn't have money to get more. Sometimes true 01/29/2024 Dependent Care Answer Date Recorded Do you need help finding or paying for care for your loved ones. For example, child care team lead or elderly care for an older adult? No 01/29/2024 Education Answer Date Recorded Do you think completing more education or training, like finishing a GED, going to college, or learning a trade, would be helpful for you? Unable to respond 01/29/2024 Employment and Income Answer Date Recor ded During the last four weeks, have you been actively looking for work? No 01/29/2024 Living Situation Answer Date Recorded What is your living situation? 1 03/31/2023 Sex and Gender Information Value Date Recorded Sex Assigned at Male 06/06/2024 1:38 PM EDT Legal Sex Male 9:43 AM EST Gender Identity Male 06/06/2024 1:38 PM EDT Sexual Orientation Straight 06/06/2024 1: 38 PM EDT Obstetrics History Last Filed Vital Signs Vital Sign Reading Time Taken Comments Blood Pressure 110/64 07/29/2024 8:31 AM EDT Pulse 75 07/29/2024 8:31 AM EDT Temperature 36.5 C (97.7 F) 07/29/2024 8:31 AM EDT Respiratory Rate 20 07/29/2024 8:31 AM EDT Oxygen Saturation 95% 07/29/2024 8:31 AM EDT Inhaled Oxygen Concentration - - Weight 117 kg (258 lb) 07/31/2024 12:41 PM EDT Height 165.1 cm (5' 5 ) 07/31/2024 12:41 PM EDT Body Mass Index 42.93 07/31/2024 12:41 PM EDT Plan of Treatment Upcoming Encounters Date Type Department Care Team (Late st Contact Info) Description 10/10/2024 9:30 AM EDT Office Visit [address] [phone] Jorje Carolina MD [address] [place] [id number] 10/31/2024 9:00 AM EDT Office Visit [facility] [place] [facility] [place] [address] [place] [phone] Alea Major PA [address] [facility] [address] [place] [address] 12/15/2024 9:30 AM EDT Office Visit Pulmonolgy - [place] [address] [facility] [address] [place] [phone] Susan Kaur MD [address] [facility] [address] [place] [address] 01/06/2025 9:50 AM EST Office Visit Gastroenterology - [place] [address] [facility] [address] [facility] [address] [place] [phone] Corinna Bennett PA 175 [facility] [address] [place] [address] 02/05/2025 9:00 AM EST Office Visit Adult Medicine [address] [phone] Jorje Carolina MD [address] [place] [address] Health Maintenance Due Date Last Done Comments Zoster Vaccines (1 of 2) 08/14/1970 RSV Immunization Adult Patients (1 - Risk 60-74 years 1-dose series) 2011 COVID-19 Vaccine ( - season) 2023 08/24/2021, 02/02/2021, 06/18/2020, Additional history exists Diabetes: Annual Foot Exam 12/01/2023 11/30/2022 Influenza Vaccine (#1) 2024 , 02/16/2023, 02/04/2021, Additional history exists Diabetes: Blood Sugar Control Test (HGBA1C) 12/05/2024 06/05/2024, 03/13/2024, 01/31/2024, Additional history exists Diabetes: Annual Retina Eye Exam 01/16/2025 01/17/2024, 11/27/2016 Social Influencers of Health Screening 01/28/2025 01/29/2024 Falls Risk Assessment 01/30/2025 01/31/2024 Medicare Annual Wellness Visit 01/30/2025 01/31/2024 Diabetes: Annual Urine Albumin-Creatinine Ratio (uACR) 06/05/2025 06/05/2024, 07/26/2023 Diabetes: Annual GFR (Glomerular Filtration Rate) 07/01/2025 07/01/2024, 06/05/2024, 03/21/2024, Additional history exists Hypertension/CHF/CAD Annual BMP Blood Test 07/01/2025 07/01/2024, 06/05/2024, 03/21/2024, Additional history exists Cholesterol Screening (Lipid Panel) 07/25/2028 07/26/2023, 07/26/2023 Colorectal Cancer Screening: Colonoscopy 05/25/2032 05/25/2022 DTaP,Tdap,and Td Vaccines (2 - Td or Tdap) 06/08/2032 06/08/2022 Abdominal Aortic Aneurysm (AAA) Screen Completed 02/14/2022 Pneumococcal Vaccine: 50+ Years Completed 06/08/2022, 12/02/2018 Depression Screening Completed 04/10/2024 Hepatitis C Screening Completed 07/01/2024, 019 HIB Vaccines Aged Out No longer eligi ble based on patient's age to complete this topic HPV Vaccines Aged Out No longer eligi ble based on patient's age to complete this topic Hepatitis A Vaccines Aged Out No long er eligible based on patient's age to complete this topic Hepatitis B Vaccines Discontinued IPV Vaccines Aged Out No longer eligi ble based on patient's age to complete this topic MMR Vaccines Aged Out No longer eligi ble based on patient's age to complete this topic Meningococcal ACWY Vaccine Aged Out N o longer eligible based on patient's age to complete this topic Meningococcal B Vaccine Aged Out No l onger eligible based on patient's age to complete this topic RSV Immunization Patients Under 20 months Aged Out No longer eligible based on patient's age to complete this topic Varicella Vaccines Aged Out No longer eligible based on patient's age to complete this topic Procedures Procedure Name Priority Date/Time Associated Diagnosis Comments XR UGI W AIR CONTRAST Routine 08/13/2024 8:14 AM EDT Gastroesophageal reflux disease without esophagitis Fatty liver Morbid obesity with BMI of 40.0-44.9, adult ([facility] V24, [facility] V28) CT HEAD WO CONTRAST Routine 08/13/2024 7 :19 AM EDT NPH (normal pressure hydrocephalus) ([facility] V24, [facility] V28) HEPATITIS C ANTIBODY Routine 07/01/2024 12:46 PM EDT Chronic kidney disease (CKD) stage G3b/A1, moderately decreased glomerular filtration rate (GFR) between 30-44 mL/min/1.73 square meter and albuminuria creatinine ratio les* ([facility]/HCC V24, [facility] V28) Persistent proteinuria Renal osteodystrophy RENAL FUNCTION PANEL Routine 07/01/2024 12:46 PM EDT Chronic kidney disease (CKD) stage G3b/A1, moderately decreased glomerular filtration rate (GFR) between 30-44 mL/min/1.73 square meter and albuminuria creatinine ratio les* (CMS/HCC V24, CMS/HCC V28) Persistent proteinuria Renal osteodystrophy MICROALBUMIN CREATININE URINE RATIO Routine 06/05/2024 12:04 PM EDT Type 2 diabetes mellitus with diabetic neuropathy, with long-term current use of insulin (CMS/HCC V24, CMS/HCC V28) HEMOGLOBIN A1C Routine 06/05/2024 9:37 AM EDT Type 2 diabetes mellitus with diabetic neuropathy, with long-term current use of insulin (CMS/HCC V24, CMS/HCC V28) LIPID PANEL Routine 07/26/2023 DIABETES FOOT EXAM Routine 11/30/2022 COLONOSCOPY Routine 05/25/2022 ABDOMINAL AORTIC ANEURYSM SCRREN Routine 02/14/2022 from Last 3 Months or Most Recently Relevant to Health Maintenance Results * XR UGI w Air Contrast (08/13/2024 8:14 AM EDT) Anatomical Region Laterality Modality Body Radiographic Danna ging 08/13/2024 9:34 AM EDT Impressions 08/13/2024 9:45 AM EDT 1. Moderate esophageal dysmotility. 2. Question tiny, sliding, axial hiatal hernia without visualized gastroesophageal reflux overall unchanged when compared to prior imaging from 2014. -------- FINAL REPORT -------- Dictated By: Roselyn Sevilla Dictated Date: 08/13/2024 09:34 ET Assigned Physician: Trino Carver Reviewed and Electronically Signed By: Trino Carver Signed Date: 08/13/2024 09:45 ET Workstation ID: [id number] Transcribed By: Self Edit Transcribed Date: 08/13/2024 09:40 ET Resident/PA/TEA TREE FARMER: Roselyn Sevilla Narrative 08/13/2024 9:45 AM EDT FINDINGS: Double contrast UGI performed. COMPARISON: Upper GI with small bowel series February 23, 2015 HISTORY: Patient is a 73-year-old male with history of GERD, generalized abdominal discomfort. REAL TIME OPERATOR radiographs: Supervisor Telephone Clerks AP radiograph of the abdomen obtained. Bowel gas pattern is nonobstructive. Visualized lung bases appear clear. There is a moderate stool burden. There is a ventriculoperitoneal shunt visualized with catheter terminating at midline within the pelvis. FINDINGS: Effervescent crystals were administered orally. Thick and thin barium was then administered orally under fluoroscopic control. Esophagus: There is moderate esophageal dysmotility as demonstrated by slow transit of contrast down the esophagus and visualized tertiary contractions. Normal distensibility and mucosal pattern. There is no evidence of obstruction. Question tiny, sliding, axial hiatal hernia similar in appearance when compared to prior imaging from 2014. Stomach: Normal distensibility and motility. Prompt passage of contrast from the stomach into the duodenal bulb and sweep. No gastric mass or ulceration. Visualization of proximal small bowel is within normal limits. Gastroesophageal reflux: None Air Kerma:102.11 mGy Procedure Note Trino Carver MD - 08/13/2024 FINDINGS: Double contrast UGI performed. COMPARISON: Upper GI with small bowel series February 23, 2015 HISTORY: Patient is a 73-year-old male with history of GERD, generalizedabdominal discomfort. REAL TIME OPERATOR radiographs: Supervisor Telephone Clerks AP radiograph of the abdomen obtained. Bowel gaspattern is nonobstructive. Visualized lung bases appear clear. There is amoderate stool burden. There is a ventriculoperitoneal shunt visualizedwith catheter terminating at midline within the pelvis. FINDINGS: Effervescent crystals were administered orally. Thick and thinbarium was then administered orally under fluoroscopic control. Esophagus: There is moderate esophageal dysmotility as demonstrated byslow transit of contrast down the esophagus and visualized tertiarycontractions. Normal distensibility and mucosal pattern. There is noevidence of obstruction. Question tiny, sliding, axial hiatal herniasimilar in appearance when compared to prior imaging from 2014. Stomach: Normal distensibility and motility. Prompt passage of contrastfrom the stomach into the duodenal bulb and sweep. No gastric mass orulceration. Visualization of proximal small bowel is within normal limits. Gastroesophageal reflux: None Air Kerma:102.11 mGy IMPRESSION: 1. Moderate esophageal dysmotility. 2. Question tiny, sliding, axial hiatal hernia without visualizedgastroesophageal reflux overall unchanged when compared to prior imagingfrom 2014. -------- FINAL REPORT -------- Dictated By: Roselyn Sevilla Dictated Date: 08/13/2024 09:34 ET Assigned Physician: Trino Carver Reviewed and Electronically Signed By: Trino Carver Signed Date: 08/13/2024 09:45 ET Workstation ID: [id number] Transcribed By: Self Edit Transcribed Date: 08/13/2024 09:40 ET Resident/PA/TEA TREE FARMER: Roselyn Sevilla us Corinna PATEL IMG FLUOROSCOPY PROCEDURES Fi nal Result * CT Head wo Contrast (08/13/2024 7:19 AM EDT) Anatomical Region Laterality Modality Head and Neck Computed Tomogra phy 08/13/2024 2:36 PM EDT Impressions 08/13/2024 2:40 PM EDT Impression: 1. Stable mild ventriculomegaly with ventriculostomy catheter in place. 2. No acute hemorrhage or intracranial mass effect. Telelay PATEL ([id number]) -------- FINAL REPORT -------- Dictated By: Reina Valladares Dictated Date: 08/13/2024 14:36 ET Assigned Physician: Reina Valladares Reviewed and Electronically Signed By: Reina Valladares Signed Date: 08/13/2024 14:40 ET Workstation ID: [id number] Transcribed By: Self Edit Transcribed Date: 08/13/2024 14:36 ET Narrative 08/13/2024 2:40 PM EDT History: Headaches for 2 months. Normal pressure hydrocephalus. Status post SAFETY GLASS INSTALLER shunt. Comparison: 01/24/23 Technique: Contiguous axial images were obtained at 2.5 mm intervals through the posterior fossa and at 5 mm intervals through the remainder of the brain without intravenous contrast. DLP: 1617.71 mGy/cm Travelogy VCT Iterative reconstruction technique Findings: A right frontoparietal ventriculostomy catheter traverses the calvarium and crosses the midline to terminate in the inferior body of the left lateral ventricle, unchanged. Mild ventriculomegaly is unchanged, with bifrontal diameter approximately 42 mm compared to 41 mm previously. The basilar cisterns are patent. Mild cortical involutional changes are again seen. Mild patchy deep white matter hypodensity is unaccompanied by mass effect or hemorrhage and unchanged. No abnormal intra- or extra-axial masses or fluid collections are seen. There is no evidence of acute intracranial hemorrhage. Minimal mucoperiosteal thickening is seen within the partially imaged paranasal sinuses. The mastoid air cells are clear. Procedure Note Reina Valladares MD - 08/13/2024 History: Headaches for 2 months. Normal pressure hydrocephalus. Statuspost SAFETY GLASS INSTALLER shunt. Comparison: 01/24/23 Technique: Contiguous axial images were obtained at 2.5 mm intervalsthrough the posterior fossa and at 5 mm intervals through the remainder ofthe brain without intravenous contrast. DLP: 1617.71 mGy/cm Travelogy VCT Iterative reconstruction technique Findings: A right frontoparietal ventriculostomy catheter traverses the calvariumand crosses the midline to terminate in the inferior body of the leftlateral ventricle, unchanged. Mild ventriculomegaly is unchanged, withbifrontal diameter approximately 42 mm compared to 41 mm previously. Thebasilar cisterns are patent. Mild cortical involutional changes are againseen. Mild patchy deep white matter hypodensity is unaccompanied by mass effector hemorrhage and unchanged. No abnormal intra- or extra-axial masses orfluid collections are seen. There is no evidence of acute intracranialhemorrhage. Minimal mucoperiosteal thickening is seen within the partially imagedparanasal sinuses. The mastoid air cells are clear. IMPRESSION: Impression: 1. Stable mild ventriculomegaly with ventriculostomy catheter in place. 2. No acute hemorrhage or intracranial mass effect. Doyenz PA ([id number]) -------- FINAL REPORT -------- Dictated By: Reina Valladares Dictated Date: 08/13/2024 14:36 ET Assigned Physician: Reina Valladares Reviewed and Electronically Signed By: Reina Valladares Signed Date: 08/13/2024 14:40 ET Workstation ID: [id number] Transcribed By: Self Edit Transcribed Date: 08/13/2024 14:[address] PROCEDURES Final Re sult * Hepatitis C antibody (07/01/2024 12:46 PM EDT) [facility] Hepatitis C Antibody Negative Negative LAB CHEMISTRY METHOD 07/01/2024 7:37 PM EDT [facility] Blood Venous blood specimen / Unknown Venipuncture / Unknown 07/01/2024 12:46 PM EDT 07/01/2024 12:46 PM EDT Shade Grey MD LAB BLOOD ORDERABLES Final Re sult [facility] [address] [place] [address], * (ABNORMAL) Renal function panel (07/01/2024 12:46 PM EDT) [facility] Sodium 135 133 - 145 mmol/L LAB CHEMISTRY METHOD 07/01/2024 4:46 PM [facility] Potassium 4.4 3.5 - 5.5 mmol/L LAB CHEMISTRY METHOD 07/01/2024 4:46 PM [facility] Chloride 102 96 - 110 mmol/L LAB CHEMISTRY METHOD 07/01/2024 4:46 PM T [facility] CO2 27 21 - 32 mmol/L LAB CHEMISTRY METHOD 07/01/2024 4:46 PM T [facility] Anion Gap 6 3 - 11 LAB CHEMISTRY METHOD 07/01/2024 4:46 PM [facility] Glucose 167(H) 70 - 100 mg/dL LAB CHEMISTRY METHOD 07/01/2024 4:46 PM [facility] BUN 20 5 - 25 mg/dL LAB CHEMISTRY METHOD 07/01/2024 4:46 PM T [facility] Creatinine 1.48(H) 0.70 - 1.30 mg/dL LAB CHEMISTRY METHOD 07/01/2024 4:46 PM EDT [facility] eGFR 50(L) >=60 mL/min/1. 73m2 LAB CHEMISTRY METHOD 07/01/2024 4:46 PM EDT [facility] Comment:Calculation based on the Chronic Kidney Disease Epidemiology Collaboration (CKD-EPI) equation refit without adjustment for race. BUN/Creatinine Ratio 13.5 LAB CHEMISTRY METHOD 07/01/2024 4:46 PM EDT [facility] Albumin 3.7 3.2 - 5.0 g/dL LAB CHEMISTRY METHOD 07/01/2024 4:46 PM EDT [facility] Calcium 9.5 8.5 - 10.5 mg/dL LAB CHEMISTRY METHOD 07/01/2024 4:46 PM EDT [facility] Phosphorus 3.0 2.5 - 4.5 mg/dL LAB CHEMISTRY METHOD 07/01/2024 4:46 PM EDT [facility] Blood Venous blood specimen / Unknown Venipuncture / Unknown 07/01/2024 12:46 PM EDT 07/01/2024 12:46 PM EDT us Shade Grey MD LAB BLOOD ORDERABLES Final Re sult [facility] [address] [place] [address], * (ABNORMAL) Microalbumin creatinine urine ratio (06/05/2024 12:04 PM EDT) Creatinine, Urine 118.0 mg/dL LAB CHEMISTRY METHOD 06/05/2024 3:27 PM EDT [facility] Microalb, Ur 200.0(H) 0.0 - 29.0 mg/L LAB CHEMISTRY METHOD 06/05/2024 3:27 PM EDT [facility] Microalb/Crea t Ratio 169(H) <30 mg/g creat LAB CHEMISTRY METHOD 06/05/2024 3:27 PM EDT [facility] Urine Urine specimen obtained by clean catch procedure / Unknown Non-blood Collection / Unknown 06/05/2024 12:04 PM EDT 06/05/2024 12:04 PM EDT Hans Tony MD LAB URINE ORDERABLES Final Resul t Performing Organization Address [facility] de Phone Number [facility] [address] [place] [address], [place] [phone] * (ABNORMAL) Hemoglobin A1c (06/05/2024 9:37 AM EDT) Hemoglobin A1C 7.3(H) <6.5 % LAB CHEMISTRY METHOD 06/05/2024 2:19 PM EDT [facility] Mean Bld Glu Estim. 163 mg/dL LAB CHEMISTRY METHOD 06/05/2024 2:19 PM EDT [facility] Blood Venous blood specimen / Unknown Venipuncture / Unknown 06/05/2024 9:37 AM EDT 06/05/2024 9:37 AM EDT us Hans Tony MD LAB BLOOD ORDERABLES Final Resul t Performing Organization Address [facility]/ZIP Co de Phone Number [facility] [address] [place] [address], [place] [phone] * Lipid panel (07/26/2023) LDL/HDL Ratio 2 0 - 4 Triglycerides 140 0 - 150 mg/dL Cholesterol 108 0 - 200 mg/dL HDL 61 >=40 mg/dL LDL Cholesterol 19 0 - 100 mg/dL Blood Venous blood specimen / Unknown us Genna Worthy MD LAB BLOOD ORDERABLES Nereida l Result * Hm Diabetes Foot Exam (11/30/2022) Diabetes: Annual Foot Exam Abstracted Historical Provider HEALTH MAINTENANCE Final Result * Colonoscopy (05/25/2022) Pathologist [facility] Colonoscopy No Interpretation , Abstracted Anatomical Region Laterality Modality Other Historical Provider HEALTH MAINTENANCE Final Result * Abdominal Aortic Aneurysm Screen (02/14/2022) Pathologist [facility] Abdominal Aortic Aneurysm (AAA) Screening Abstracted Anatomical Region Laterality Modality Other Historical Provider HEALTH MAINTENANCE Final Result from Last 3 Months or Most Recently Relevant to Health Maintenance Insurance [facility] MEDICARE Member Subscriber Plan / Payer (Ef fective 2017-Present) Name:Ryan Moore Relation to Subscriber:Self Name:Ryan Escalante Payer ID:[id number] Group ID:[id number] Type:Not on file Address: [place] [address] [address] [id number] Advance Directives Documents on File Type Date Recorded Patient Data Management Analyst Expl anation Health Care Decision (hx) 02/14/2022 HE ALTH CARE PROXY Health Care Decision (hx) 02/14/2022 HE ALTH CARE PROXY Health Care Decision (hx) 02/14/2022 HE ALTH CARE PROXY Health Care Decision (hx) 02/14/2022 HE ALTH CARE PROXY Health Care Decision (hx) 02/14/2022 HE ALTH CARE PROXY Health Care Decision (hx) 02/14/2022 HE ALTH CARE PROXY Health Care Decision (hx) 02/14/2022 HE ALTH CARE PROXY Health Care Decision (hx) 02/14/2022 HE ALTH CARE PROXY Health Care Decision (hx) 02/14/2022 HE ALTH CARE PROXY Health Care Decision (hx) 11/27/2019 AD SNOW DIRECTIVE Health Care Decision (hx) 11/27/2019 AD SNOW DIRECTIVE Health Care Decision (hx) 11/27/2019 AD SNOW DIRECTIVE Health Care Decision (hx) 11/27/2019 AD SNOW DIRECTIVE Health Care Decision (hx) 11/27/2019 AD SNOW DIRECTIVE Health Care Decision (hx) 11/27/2019 AD SNOW DIRECTIVE Health Care Decision (hx) 11/27/2019 AD SNOW DIRECTIVE Health Care Decision (hx) 11/27/2019 AD SNOW DIRECTIVE Health Care Decision (hx) 11/27/2019 AD SNOW DIRECTIVE Health Care Decision (hx) 11/27/2019 AD SNOW DIRECTIVE Health Care Decision (hx) 11/27/2019 AD SNOW DIRECTIVE Health Care Decision (hx) 11/27/2019 AD SNOW DIRECTIVE Health Care Decision (hx) 11/27/2019 AD SNOW DIRECTIVE Health Care Decision (hx) 11/27/2019 AD SNOW DIRECTIVE Health Care Decision (hx) 11/27/2019 AD SNOW DIRECTIVE Health Care Decision (hx) 11/27/2019 AD SNOW DIRECTIVE Health Care Decision (hx) 11/27/2019 AD SNOW DIRECTIVE Health Care Decision (hx) 11/27/2019 AD SNOW DIRECTIVE Health Care Decision (hx) 11/27/2019 AD SNOW DIRECTIVE Health Care Decision (hx) 11/27/2019 AD SNOW DIRECTIVE Health Care Decision (hx) 11/27/2019 AD SNOW DIRECTIVE Health Care Decision (hx) 11/27/2019 AD SNOW DIRECTIVE Health Care Decision (hx) 11/27/2019 AD SNOW DIRECTIVE Care Teams Lead Laying And Gluing Machine Operator Relationship Specialty Start Date End Date Jorje Carolina MD [address] [place] [id number] PCP - General 02/22/22
--- OUTSIDE RECORDS SUMMARY | 2024-10-08 13:42 | XMS_ITS | Clinical Summary ---
Author Organization [facility] Address [address] [place] [address] Care Team Providers Care Motor Vehicles Inspector Name Role Phone Trino Moses NP Primary Care Provider [phone] Allergies No known active allergies Medications Medication Sig Dispensed Refills Start Date End Date Status amitriptyline (ELAVIL) tablet 50 mg Take 1 tablet by mouth daily. 0 Active amLODIPine (NORVASC) tablet 5 mg Take 5 mg by mouth daily. 0 06/27/2020 Active atorvastatin (LIPITOR) tablet 20 mg Take 20 mg by mouth daily. 0 08/09/2020 Active cetirizine (ZyrTEC) 10 MG tablet Take 1 tablet by mouth daily. 0 08/20/2020 Active cyanocobalamin 1000 MCG tablet Take 1 tablet by mouth once a week. 0 Active Dupilumab (Dupixent) 300 MG/2ML SOSY Inject 300 mg under the skin once a week. 0 Active ergocalciferol (VITAMIN D2) capsule 19882 units Take 1 capsule by mouth once a week. 0 08/20/2020 Active fluticasone-salmeter ol (Wixela Inhub) 250-50 MCG/DOSE DISKUS 1 inhalation by Inhaled route every 12 (twelve) hours. 0 Active gabapentin (NEURONTIN) 600 MG tablet Take 1,200 mg by mouth 3 (three) times a day. 0 08/20/2020 Active hydrOXYzine (ATARAX) 25 MG tablet Take 1 tablet by mouth 2 (two) times a day as needed. 0 07/05/2020 Active Lantus SoloStar 100 UNIT/ML injection Inject 37 Units under the skin daily. 0 07/25/2020 Active lisinopril (PRINIVIL,ZESTRIL) tablet 40 mg Take 40 mg by mouth daily. 0 06/19/2020 Active meclizine (ANTIVERT) 12.5 MG tablet Take 1 tablet by mouth 3 (three) times a day as needed. 0 12/17/2019 Active metFORMIN (GLUCOPHAGE) tablet 1000 mg Take 1 tablet by mouth 2 (two) times a day with meals. 0 03/31/2020 Active montelukast (SINGULAIR) 10 MG tablet Take 10 mg by mouth every night at bedtime. 0 07/04/2020 Active omeprazole (PriLOSEC) 20 MG capsule Take 20 mg by mouth daily. 0 07/16/2020 Active oxybutynin (DITROPAN-XL) 10 MG 24 hr tablet Take 10 mg by mouth daily. 0 08/05/2020 Active rOPINIRole (REQUIP) 0.5 MG tablet Take 0.5 mg by mouth every night at bedtime. 0 08/12/2020 Active tamsulosin (FLOMAX) 0.4 MG CAPS Take 0.4 mg by mouth daily. 0 08/05/2020 Active Social History Tobacco Use Types Packs/Day Years Used Date Smoking Tobacco: Former Smokeless Tobacco: Never Alcohol Use Standard Drinks/Week Comments Yes 0 (1 standard drink = 0.6 oz pur e alcohol) occ Sex and Gender Information Value Date Recorded Sex Assigned at Not on file Gender Identity Not on file Sexual Orientation Not on file Job Start Date Occupation Industry Not on file Not on file Not on file Last Filed Vital Signs Vital Sign Reading Time Taken Comments Blood Pressure - - Pulse 70 08/24/2020 9:17 AM EDT Temperature 36.4 C (97.5 F) 08/24/2020 9:17 AM EDT Respiratory Rate - - Oxygen Saturation 95% 08/24/2020 9:17 AM EDT Inhaled Oxygen Concentration - - Weight 117.9 kg (260 lb) 08/24/2020 9:17 AM EDT Height 167.6 cm (5' 6 ) 08/24/2020 9:17 AM EDT Body Mass Index 41.97 08/24/2020 9:17 AM EDT Plan of Treatment Health Maintenance Due Date Last Done Comments Hepatitis C Screening 1950 Depression Screening 1962 Preventative Health Evaluation 08/14/1969 DTap / Tdap / Td (1 - Tdap) 08/14/1970 Colon Cancer Screening (Colonoscopy) 08/14/1996 Shingrix-Zoster Vaccine (1 of 2) 08/14/2001 Fall Risk Assessment 08/14/2016 Pneumococcal Vaccine (2 of 2 - PPSV23 or PCV20) 12/03/2019 12/02/2018 COVID-19 Vaccine (3 - season) 2023 06/18/2020, 05/21/2020 Influenza Vaccine (#1) 2024 0, 12/02/2018, 03/05/2018, Additional history exists RSV Adult > 60+ Yrs or (1 - 1-dose 75+ series) 08/14/2026 Hepatitis B Vaccines Aged Out No long er eligible based on patient's age to complete this topic RSV Ped < 20 months Aged Out No longe r eligible based on patient's age to complete this topic Care Teams Motor Vehicles Inspector Relationship Specialty Start Date End Date Trino Moses NP [address] [facility] [address] [place] [address] PCP - General Family Medicine 05/29/17
== END 2024-10-08 13:09 | disposition home or self-care (01) ==
LOC: HO.NEURO 13:08
PROVIDERS: PCP Family Medicine; Visit Provider Physician Assistant
DX: G56.03 Carpal tunnel syndrome, bilateral upper limbs (principal)
CPT/HCPCS: 95886; 95911

== ENCOUNTER → 2024-10-08 13:15 | Outpatient (BNV) | payer MEDICARE, SELFPAY | PROVIDERS: PCP Family Medicine; Visit Provider Physical Medicine & Rehabilitation | DX: G56.03 Carpal tunnel syndrome, bilateral upper limbs (principal); G56.23 Lesion of ulnar nerve, bilateral upper limbs | CPT/HCPCS: 95886; 95911 ==

== ENCOUNTER 2025-02-09 09:39 | Outpatient (AMB) | payer OTHER, SELFPAY ==
[2025-02-09 09:51] VITALS: BMI 42.6
--- NOTE | 2025-02-09 09:51 | A.PHYSOV_ITS ---
Vital Signs 02/09/25 09:51 Height 5 ft 5 in Weight 256 lb BMI 42.6 Intake Visit Reasons: B/L KNEE INJECTIONS Intake Note: Patient is a 74 year old male here today for bilateral knee injections. Ed Tech Required: No Allergies No Known Allergies Allergy (Verified 02/09/25 09:52) [facility] Medical History Obesity Arthritis Asthma NPH (normal pressure hydrocephalus) GERD (gastroesophageal reflux disease) Kidney disease Hyperlipidemia HTN (hypertension) Diabetic neuropathy Diabetes Gait disorder Surgical History History of brain shunt H/O knee surgery History of cataract surgery Family History Father Alzheimer disease Mother Diabetes Hypertension Brother Prostate cancer Brother Cancer Sister Heart disease Sister Lung disease Son Diabetes Depression Daughter Diabetes Depression Social History Alcohol intake: current Alcohol intake frequency: holidays/special occasions only Patient Tobacco Use Status: Former Tobacco user Physical Exam Vital Signs: BMI result Body Mass Index 42.6 Office Procedures AMB Knee Injection AMB Knee Injection Procedure Details: Bilateral Knee injection: The risks, benefits and complications of the left knee injection were discussed with the patient including but not limited to increased serum glucose, infection, nerve pain, fat atrophy, pigment augmentation, bleeding and pain. All questions were answered to the patient's satisfaction. Verbal consent was obtained. The patient was eager to proceed. Using aseptic technique with Betadine, ethyl chloride was then used to desensitize the skin. Using a 22-gauge needle 40 mg of Kenalog and 3 mL 2% lidocaine were injected into the knee joint. A Band-Aid was applied. Patient tolerated the procedure well without immediate complication. Postinjection instructions were given. The procedure was repeated on the right. Knee Injection - : Bilateral All charges added?: Procedure code (CPT) selection complete Office Meds Kenalog 40 mg/mL suspension for injection Performing Provider: JORGE Black Performing Location: [facility] [place] [facility] Administered by: JORGE Black on 02/09/25 10:10 Dose Route Admin Location Dispensed Lot Number Expiration Date [facility] Personal Financial Advisor 40 mg intra-articular 1 mL [id number] [employer] Total Dispensed Waste 1 mL 0 % lidocaine (PF) 20 mg/mL (2 %) injection solution Performing Provider: JORGE Black Performing Location: [facility] – [place] [facility] Administered by: JORGE Black on 02/09/25 10:10 Dose Route Admin Location Dispensed Lot Number Expiration Date [place] Personal Financial Advisor 60 mg intra-articular 5 mL [id number] [facility] [employer] Total Dispensed Waste 5 mL 40 % Assessment & Plan Assessment & Plan (1) Bilateral primary osteoarthritis of knee: Code(s): M17.0 - Bilateral primary osteoarthritis of knee Category: Medical Plan Mr. Moore is a 74-year-old male seen in evaluation today for bilateral knee osteoarthritis. Today consented to bilateral knee cortisone injection. He was given post-injection instructions, recommend: Moist heat compresses for 15 minutes up to 5 times daily. Continue low-impact activities such as walking, biking and swimming. Follow-up with our office as needed. Thank you for allowing me to participate in the care of your patient. Orders: Orders AMB Knee Injection Today M17.0 - Bilateral primary osteoarthritis of knee Coding Level of Care Code Procedure Only Diagnoses Bilateral primary osteoarthritis of knee M17.0 CPT Codes AMB Knee Injection - Hip/Bursa Injection - : Bilateral ([id number])
== END 2025-02-09 10:08 | disposition home or self-care (01) ==
LOC: HO.HPHYS 09:39
PROVIDERS: PCP Family Medicine; Visit Provider Physician Assistant
DX: M17.0 Bilateral primary osteoarthritis of knee (principal)
CPT/HCPCS: 20610

== ENCOUNTER → 2025-02-09 09:39 | Outpatient (BNVA) | payer OTHER, SELFPAY | PROVIDERS: PCP Family Medicine; Visit Provider Physician Assistant | DX: M17.0 Bilateral primary osteoarthritis of knee (principal) | CPT/HCPCS: 20610; J2003; J3301 ==